=== PATIENT | female | born 1985 | race African-American/Black ===

== ENCOUNTER 2016-03-27 16:15 | Emergency (ER) | payer BC, OTHER ==
[~2016-03-27] VITALS: Ht 154.9 cm; Wt 79.4 kg
[~2016-03-27 16:15] MED LIST: RIVA10TA PO
[2016-03-27 17:15] VITALS: BP 122/76
[2016-03-27] MEDS ORDERED: PSEU120T58 PO (17:49)
[2016-03-27] MEDS ORDERED: AMOX875T PO (17:49)
[2016-03-27] MEDS ORDERED: BENZ100C PO (17:49)
--- NOTE | 2016-03-27 17:50 | PHYS DOC ---
Past Medical History Past Medical History: Other Additional Past Medical Histor: blood clots in lung Past Surgical History: , Tonsillectomy Alcohol Use: Rarely Drug Use: None Adult General Chief Complaint Chief Complaint: COUGH HPI HPI Patient is a 30 year old female who presents with left ear pain, productive cough and nasal congestion for one week. Patient denies any fever. Denies any significant previous medical history Review of Systems Review of Systems Constitutional: Denies fever or chills [] Eyes: Denies change in visual acuity, redness, or eye pain [] HENT: Left ear pain and productive cough nasal congestion Cardiovascular: No additional information not addressed in HPI [] GI: Denies abdominal pain, nausea, vomiting, bloody stools or diarrhea [] : Denies dysuria or hematuria [] Musculoskeletal: Denies back pain or joint pain [] Integument: Denies rash or skin lesions [] Neurologic: Denies headache, focal weakness or sensory changes [] Endocrine: Denies polyuria or polydipsia [] Allergies Allergies Allergies Coded Allergies Type Severity Reaction Last Updated Verified doxycycline Allergy Intermediate rash 02/28/14 No sumatriptan Allergy Intermediate swelling 02/28/14 No Physical Exam Physical Exam Constitutional: Well developed, well nourished, no acute distress, non-toxic appearance. [] HENT: Normocephalic, atraumatic, bilateral external ears normal, oropharynx moist, no oral exudates, nose normal. [] Bilateral TM are mildly injected with small amount of cloudy fluid Eyes: PERRLA, EOMI, conjunctiva normal, no discharge. [] Neck: Normal range of motion, no tenderness, supple, no stridor. [] Cardiovascular:Heart rate regular rhythm, no murmur [] Lungs & Thorax: Bilateral breath sounds clear to auscultation [] Abdomen: Bowel sounds normal, soft, no tenderness, no masses, no pulsatile masses. [] Skin: Warm, dry, no erythema, no rash. [] Back: No tenderness, no CVA tenderness. [] Extremities: No tenderness, no cyanosis, no clubbing, ROM intact, no edema. [] Neurologic: Alert and oriented X 3, normal motor function, normal sensory function, no focal deficits noted. [] Psychologic: Affect normal, judgement normal, mood normal. [] Current Patient Data Vital Signs Vital Signs Date Time Temp Pulse Resp B/P Pulse Ox O2 Delivery O2 Flow Rate FiO2 03/27/16 17:15 98.6 82 18 100 Room Air 98.6 EKG EKG [] Radiology/Procedures Radiology/Procedures [] Course & Med Decision Making Course & Med Decision Making Pertinent Labs and Imaging studies reviewed. (See chart for details) Patient is in the due to otitis media cough and nasal congestion. Discharged with amoxicillin for 10 days. Tylenol/ Motrin for pain or fever. Over-the- counter decongestants also recommended. Follow-up with PCP in one week. Dragon Disclaimer Dragon Disclaimer This electronic medical record was generated, in whole or in part, using a voice recognition dictation system. Departure Departure Impression: Primary Impression: Otitis media Additional Impressions: Cough Acute upper respiratory infection Disposition: HOME, SELF-CARE Condition: STABLE Referrals: GRACIELA BYRD MD (PCP) Follow-up with your doctor in one week Patient Instructions: Otitis Media, Adult Additional Instructions: You were seen for an upper respiratory infection, ear infection and a cough. Complete your antibiotics. Take Tylenol or Motrin as needed for pain or fever. Take omzh-mrt-[id number] decongestant as well. Scripts Pseudoephedrine Hcl (Pseudoephedrine)120 Mg Tablet.er1 Tab PO BID #20 TAB Prov:DEONDRE DOWLING APRN 03/27/16 Benzonatate (Tessalon Perle)100 Mg Capsule1 Cap PO TID #30 CAP Prov:DEONDRE DOWLING APRN 03/27/16 Amoxicillin 875 Mg Tablet1 Tab PO BID #20 TAB Prov:DEONDRE DOWLING APRN 03/27/16 Problem Qualifiers Primary Impression: Otitis media Otitis media type: other nonsuppurative Laterality: bilateral Chronicity: acute Recurrence: not specified as recurrent Qualified Code: H65.193 - Other acute nonsuppurative otitis media, bilateral DEONDRE DOWLING APRN Mar 27, 2016 17:50
== END 2016-03-27 18:05 | disposition home or self-care (01) ==
LOC: ER 16:15
DX: H65.193 Other acute nonsuppurative otitis media, bilateral (principal); J06.9 Acute upper respiratory infection, unspecified; Z88.8 Allergy status to other drugs, medicaments and biological substances; Z90.89 Acquired absence of other organs
CPT/HCPCS: 99283

== ENCOUNTER 2016-08-24 18:01 | Emergency (ER) | payer BC, OTHER ==
[~2016-08-24] VITALS: Ht 154.9 cm; Wt 78.5 kg
[~2016-08-24 18:01] MED LIST changes: +AMOX875T PO; +BENZ100C PO; +PSEU120T58 PO
[2016-08-24 18:07] VITALS: BP 119/66
[2016-08-24] MEDS ORDERED: KETOROLAC TROMETHAMINE 60 MG/2 ML INJ. IM ONE (18:15)
[2016-08-24] MEDS ORDERED: AMOX875T PO (18:19)
--- NOTE | 2016-08-24 18:20 | PHYS DOC ---
Past Medical History Past Medical History: Other Additional Past Medical Histor: blood clots in lung Past Surgical History: , Tonsillectomy Alcohol Use: Rarely Drug Use: None Adult General Chief Complaint Chief Complaint: HEADACHE HPI HPI Patient is a 30 year old female presents to the emergency department with a one -week history of right ear pain and a headache for 24 hours. Patient states that she took a dose of her furosemide this morning he did not have relief of her headache so she presents for further evaluation and headache and ear pain. She states she has no photophobia, no nausea, no vomiting. She reports no fever. She has had mild nasal congestion for one week. She describes this headache to be typical of her chronic migraines but concerning because it was not relieved by Fioricet. Review of Systems Review of Systems Constitutional: Denies fever or chills [] Eyes: Denies change in visual acuity, redness, or eye pain [] HENT: Denies nasal congestion or sore throat, complains of right ear pain and nasal congestion [] Respiratory: Denies cough or shortness of breath [] Cardiovascular: No additional information not addressed in HPI [] GI: Denies abdominal pain, nausea, vomiting, bloody stools or diarrhea [] : Denies dysuria or hematuria [] Musculoskeletal: Denies back pain or joint pain [] Integument: Denies rash or skin lesions [] Neurologic: headache without focal weakness or sensory changes [] Endocrine: Denies polyuria or polydipsia [] Allergies Allergies Allergies Coded Allergies Type Severity Reaction Last Updated Verified doxycycline Allergy Intermediate rash 02/28/14 No sumatriptan Allergy Intermediate swelling 02/28/14 No Physical Exam Physical Exam Constitutional: Well developed, well nourished, no acute distress, non-toxic appearance. [] HENT: Normocephalic, atraumatic, bilateral external ears normal, oropharynx moist, no oral exudates, right tympanic membrane with effusion, erythematous. Anterior turbinates swollen. [] Eyes: PERRLA, EOMI, conjunctiva normal, no discharge. [] Neck: Normal range of motion, no tenderness, supple, no stridor. [] Cardiovascular:Heart rate regular rhythm, no murmur [] Lungs & Thorax: Bilateral breath sounds clear to auscultation [] Abdomen: Bowel sounds normal, soft, no tenderness, no masses, no pulsatile masses. [] Skin: Warm, dry, no erythema, no rash. [] Back: No tenderness, no CVA tenderness. [] Extremities: No tenderness, no cyanosis, no clubbing, ROM intact, no edema. [] Neurologic: Alert and oriented X 3, normal motor function, normal sensory function, no focal deficits noted. [] Psychologic: Affect normal, judgement normal, mood normal. [] EKG EKG [] Radiology/Procedures Radiology/Procedures [] Course & Med Decision Making Course & Med Decision Making Pertinent Labs and Imaging studies reviewed. (See chart for details) [] Dragon Disclaimer Dragon Disclaimer This electronic medical record was generated, in whole or in part, using a voice recognition dictation system. Departure Departure Impression: Primary Impression: Otitis media Additional Impression: Headache Disposition: HOME, SELF-CARE Condition: STABLE Referrals: GRACIELA BYRD MD (PCP) Patient Instructions: Headache, FAQs, Otitis Media, Adult Additional Instructions: Integument home medications for headache as previously prescribed by your primary care provider. Scripts Amoxicillin (AMOXICILLIN) 875 Mg Tablet 1 TAB PO BID, #20 TAB Prov: JOLENE WARE APRN 08/24/16 Problem Qualifiers Primary Impression: Otitis media Otitis media type: serous Laterality: right Chronicity: acute Recurrence : not specified as recurrent Qualified Codes: H65.01 - Acute serous otitis media, right ear Additional Impression: Headache Headache type: unspecified Headache chronicity pattern: chronic headache Intractability: not intractable Qualified Codes: R51 - Headache JOLENE WARE APRN Aug 24, 2016 18:19
== END 2016-08-24 18:23 | disposition home or self-care (01) ==
LOC: ER 18:01
DX: H65.01 Acute serous otitis media, right ear (principal); R51 Headache; Z88.1 Allergy status to other antibiotic agents; Z88.8 Allergy status to other drugs, medicaments and biological substances
CPT/HCPCS: 96372; 99283; J1885

== ENCOUNTER 2017-01-23 18:47 | Emergency (ER) | payer OTHER ==
[~2017-01-23] VITALS: Ht 154.9 cm; Wt 78.5 kg
[2017-01-23 19:05] VITALS: BP 122/62
--- NOTE | 2017-01-23 19:49 | PHYS DOC ---
Past Medical History Past Medical History: Bronchitis, Migraines, Pneumonia, Other Additional Past Medical Histor: blood clots in lung Past Surgical History: , Tonsillectomy Alcohol Use: Rarely Drug Use: None Adult General Chief Complaint Chief Complaint: COUGH HPI HPI Patient is a 31 year old female with history of bronchitis, migraine headaches , who presents today complaining of a productive cough for 2 weeks. Patient states she has tried amoxicillin and azithromycin last week with no relief. Patient denies any fever. Denies any history of smoking. Review of Systems Review of Systems Constitutional: Denies fever or chills [] Eyes: Denies change in visual acuity, redness, or eye pain [] HENT: Denies nasal congestion or sore throat [] Respiratory: Reports a productive cough, denies any shortness of breath Cardiovascular: No additional information not addressed in HPI [] GI: Denies abdominal pain, nausea, vomiting, bloody stools or diarrhea [] : Denies dysuria or hematuria [] Musculoskeletal: Denies back pain or joint pain [] Integument: Denies rash or skin lesions [] Neurologic: Denies headache, focal weakness or sensory changes [] All other systems were reviewed and found to be within normal limits, except as documented in this note. Allergies Allergies Allergies Coded Allergies Type Severity Reaction Last Updated Verified doxycycline Allergy Intermediate rash 02/28/14 No sumatriptan Allergy Intermediate swelling 02/28/14 No Physical Exam Physical Exam Constitutional: Well developed, well nourished, no acute distress, non-toxic appearance. [] HENT: Normocephalic, atraumatic, bilateral external ears normal, oropharynx moist, no oral exudates, nose normal. [] Eyes: PERRLA, EOMI, conjunctiva normal, no discharge. [] Neck: Normal range of motion, no tenderness, supple, no stridor. [] Cardiovascular:Heart rate regular rhythm, no murmur [] Lungs & Thorax: Bilateral breath sounds clear to auscultation [] Abdomen: Bowel sounds normal, soft, no tenderness, no masses, no pulsatile masses. [] Skin: Warm, dry, no erythema, no rash. [] Back: No tenderness, no CVA tenderness. [] Extremities: No tenderness, no cyanosis, no clubbing, ROM intact, no edema. [] Neurologic: Alert and oriented X 3, normal motor function, normal sensory function, no focal deficits noted. [] Psychologic: Affect normal, judgement normal, mood normal. [] Current Patient Data Vital Signs Vital Signs Date Time Temp Pulse Resp B/P (MAP) Pulse Ox O2 Delivery O2 Flow Rate FiO2 01/23/17 19:05 98.1 82 20 122/62 (82) 98 Room Air 98.1 EKG EKG [] Radiology/Procedures Radiology/Procedures [] Course & Med Decision Making Course & Med Decision Making Pertinent Labs and Imaging studies reviewed. (See chart for details) Patient is in the ED with a productive cough for 2 weeks. She has already taken amoxicillin and azithromycin with no relief. Chest x-ray interpreted by Dr. Almazan is negative for any acute findings. Patient's symptoms are likely bronchitis. Be discharged with prednisone, albuterol inhaler and Tessalon Perles. OTC medications also recommended. She has a PCP, recommended following up in one week. Dragon Disclaimer Dragon Disclaimer This electronic medical record was generated, in whole or in part, using a voice recognition dictation system. Departure Departure Impression: Primary Impression: Acute bronchitis Disposition: 01 HOME, SELF-CARE Condition: STABLE Referrals: GRACIELA BYRD MD (PCP) follow up with your doctor in one week Patient Instructions: Acute Bronchitis, [id number] Additional Instructions: You were seen with acute bronchitis. Bronchitis cough can sometimes last for a while. We put you on medications to help with the symptoms. Take them as prescribed. We highly encouraged you to follow-up with your primary care doctor in the next 1-2 weeks. You can also take hgmg-mow-ycaolow medications including Delsym as well as Zyrtec or Claritin. Scripts Prednisone (PREDNISONE) 50 Mg Tablet 1 TAB PO DAILY, #5 TAB Prov: DEONDRE DOWLING APRN 01/23/17 Benzonatate (TESSALON PERLE) 100 Mg Capsule 1 CAP PO TID, #30 CAP Prov: DEONDRE DOWLING TRAVEL PTA 01/23/17 Albuterol Sulfate (PROAIR HFA INHALER) 8.5 Gm Hfa.aer.ad 1 PUFF INH PRN Q6HRS Y for SHORTNESS OF BREATH, #1 INHALER 0 Refills Prov: DEONRDE DOWLING APRN 01/23/17 Problem Qualifiers Primary Impression: Acute bronchitis Bronchitis organism: unspecified organism Qualified Codes: J20.9 - Acute bronchitis, unspecified MUTUNGADEONDRE APRN Jan 23, 2017 19:49
[2017-01-23] MEDS ORDERED: PRED50TA PO (20:07)
[2017-01-23] MEDS ORDERED: BENZ100C PO (20:07)
[2017-01-23] MEDS ORDERED: PROAIR HFA8.5 GM INH (20:07)
--- NOTE | 2017-01-24 08:18 | RAD ---
Chest, 2 views, 01/23/2017: History: Productive cough, chills, hot flashes The heart size is normal. The lungs are clear. There is no evidence of pleural fluid. IMPRESSION: No acute cardiopulmonary abnormality is detected.
== END 2017-01-23 20:20 | disposition home or self-care (01) ==
LOC: ER 18:47
DX: J20.9 Acute bronchitis, unspecified (principal); G43.909 Migraine, unspecified, not intractable, without status migrainosus; Z88.8 Allergy status to other drugs, medicaments and biological substances
CPT/HCPCS: 71020; 99284

== ENCOUNTER 2017-04-02 13:59 | Emergency (ER) | payer OTHER ==
[2017-04-02 14:54] LABS: URINE HCG POC HCG NEGATIVE (Negative)
[2017-04-02 15:36] LABS: BILIRUBIN,URINE NEGATIVE (NEG); CLARITY,URINE CLEAR; COLOR,URINE YELLOW; GLUCOSE,URINE NEGATIVE (NEG); NITRITE,URINE NEGATIVE (NEG); PH,URINE 5.5; PROTEIN,URINE NEGATIVE (NEG-TRACE); UROBILINOGEN,URINE 0.2 mg/dL (0.2 mg/dL)
[2017-04-02 15:54] LABS: BACTERIA,URINE 0 /HPF (0-FEW); RBC,URINE 0 /HPF (0-2); SQUAMOUS EPITHELIAL CELL,UR MOD /LPF; WBC,URINE 0 /HPF (0-4)
[2017-04-02 15:57] LABS: INFLUENZA A PATIENT NEGATIVE (NEGATIVE); INFLUENZA B PATIENT NEGATIVE (NEGATIVE)
[2017-04-02 15:58] LABS: OBC FLU VALID
[2017-04-02] MEDS: ONDANSETRON PF 4 MG/2 ML VIAL. IV ×2 (16:22)
[2017-04-02] MEDS: IV NORMAL SALINE 1000ML BAG 1,000 ML IV ×2 (16:22)
[2017-04-02] MEDS: KETOROLAC 30 MG/ML INJ. IV ×2 (16:22)
[2017-04-02 16:26] LABS: ADD MAN DIFF? NO
[2017-04-02 16:32] LABS: BASO % 1 % (0-3); EOS % 1 % (0-3); HEMATOCRIT 40.2 % (36.0-47.0); HEMOGLOBIN 13.7 g/dL (12.0-15.5); LYMPH # 0.6 x10^3/uL (1.0-4.8); LYMPH % 18 % (24-48); MEAN CORPUSCULAR HEMOGLOBIN 32 pg (25-35); MEAN CORPUSCULAR HGB CONC 34 g/dL (31-37); MEAN CORPUSCULAR VOLUME 92 fL (79-100); MONO # 0.4 x10^3/uL (0.0-1.1); MONO % 11 % (0-9); NEUT # 2.4 x10^3uL (1.8-7.7); NEUT % 70 % (31-73); PLATELET COUNT 239 x10^3/uL (140-400); RED BLOOD COUNT 4.35 x10^6/uL (3.50-5.40); RED CELL DISTRIBUTION WIDTH 12.3 % (11.5-14.5); WHITE BLOOD COUNT 3.4 x10^3/uL (4.0-11.0)
[2017-04-02 16:52] LABS: ANION GAP 12 (6-14); BLOOD UREA NITROGEN 12 mg/dL (7-20); BUN/CREATININE RATIO 17 (6-20); CARBON DIOXIDE 28 mmol/L (21-32); CHLORIDE 97 mmol/L (98-107); CREATININE 0.7 mg/dL (0.6-1.0); GFR 118.1; GLUCOSE 85 mg/dL (70-99); POTASSIUM 3.2 mmol/L (3.5-5.1); SODIUM 137 mmol/L (136-145)
[2017-04-02 16:58] LABS: ALBUMIN 4.2 g/dL (3.4-5.0); ALBUMIN/GLOBULIN RATIO 0.9 (1.0-1.7); ALK PHOS 92 U/L (46-116); ALT (SGPT) 29 U/L (14-59); AST (SGOT) 17 U/L (15-37); LIPASE 197 U/L (73-393); TOTAL BILIRUBIN 0.6 mg/dL (0.2-1.0); TOTAL PROTEIN 8.9 g/dL (6.4-8.2)
[2017-04-02] MEDS: POTASSIUM CHLORIDE 20 MEQ TABLET.ER. PO ×2 (17:20)
== END 2017-04-02 17:47 | disposition home or self-care (01) ==
LOC: ER 13:59
DX: R10.84 Generalized abdominal pain (principal); Z88.1 Allergy status to other antibiotic agents; Z88.8 Allergy status to other drugs, medicaments and biological substances
CPT/HCPCS: 36415; 80053; 81001; 81025; 83690; 85025; 87804; 87804-59; 96361; 96374; 96375; 99284-25; J1885; J2405; J7030

== ENCOUNTER 2018-09-25 13:30 | Emergency (ER) | payer OTHER ==
[2017-04-02 17:15] VITALS: BP 115/69
[~2018-09-25] VITALS: Ht 154.9 cm; Wt 79.4 kg
[~2018-09-25 13:30] MED LIST changes: +ALBU2.5V8 INH; +ONDA4TAB10 SL; +PRED50TA PO
--- NOTE | 2018-09-25 14:06 | PHYS DOC ---
Past Medical History Past Medical History: Bronchitis, Migraines, Pneumonia, Other Additional Past Medical Histor: blood clots in lung Past Surgical History: , Tonsillectomy Alcohol Use: Rarely Drug Use: None Adult General Chief Complaint Chief Complaint: HEADACHE HPI HPI Patient is a 32 year old female who presents to the ED today complaining of 8 out of 10 right ear pain, nasal congestion or sinus headache that began a week ago. Patient denies any fever. She states she's tried [id number]-[id number] remedies including decongestants with no relief. She is also reporting a cough when she is laying down Review of Systems Review of Systems Constitutional: Denies fever or chills [] Eyes: Denies change in visual acuity, redness, or eye pain [] HENT: Reports nasal congestion, right ear pain, denies sore throat [] Respiratory: Denies cough or shortness of breath [] Cardiovascular: No additional information not addressed in HPI [] GI: Denies abdominal pain, nausea, vomiting, bloody stools or diarrhea [] : Denies dysuria or hematuria [] Musculoskeletal: Denies back pain or joint pain [] Integument: Denies rash or skin lesions [] Neurologic: Pupils a sinus headache, denies focal weakness or sensory changes [] All other systems were reviewed and found to be within normal limits, except as documented in this note. Allergies Allergies Allergies Coded Allergies Type Severity Reaction Last Updated Verified doxycycline Allergy Intermediate rash 02/28/14 No sumatriptan Allergy Intermediate swelling 02/28/14 No Physical Exam Physical Exam Constitutional: Well developed, well nourished, no acute distress, non-toxic appearance. [] HENT: Normocephalic, atraumatic, bilateral external ears normal, oropharynx moist, no oral exudates Patient sounds congested nasally. Mild right maxillary sinus tenderness. Mild right frontal sinus tenderness. Right TM is mildly injected with cloudy fluid. Eyes: PERRLA, EOMI, conjunctiva normal, no discharge. [] Neck: Normal range of motion, no tenderness, supple, no stridor. [] Cardiovascular:Heart rate regular rhythm, no murmur [] Lungs & Thorax: Bilateral breath sounds clear to auscultation [] Abdomen: Bowel sounds normal, soft, no tenderness, no masses, no pulsatile masses. [] Skin: Warm, dry, no erythema, no rash. [] Back: No tenderness, no CVA tenderness. [] Extremities: No tenderness, no cyanosis, no clubbing, ROM intact, no edema. [] Neurologic: Alert and oriented X 3, normal motor function, normal sensory function, no focal deficits noted. [] Psychologic: Affect normal, judgement normal, mood normal. [] Current Patient Data Vital Signs Vital Signs Date Time Temp Pulse Resp B/P (MAP) Pulse Ox O2 Delivery O2 Flow Rate FiO2 09/25/18 13:40 98.6 58 16 112/70 (84) 95 Room Air 98.6 EKG EKG [] Radiology/Procedures Radiology/Procedures [] Course & Med Decision Making Course & Med Decision Making Pertinent Labs and Imaging studies reviewed. (See chart for details) This is a 32-year-old female patient who presents to the ED today with right ear infection, sinusitis and a cough. D/c on Augmentin, Flonase and OTC decongestants. Dragon Disclaimer Dragon Disclaimer This electronic medical record was generated, in whole or in part, using a voice recognition dictation system. Departure Departure Impression: Primary Impression: Cough Additional Impressions: Acute sinusitis Otitis media Disposition: HOME, SELF-CARE Condition: STABLE Referrals: KIMI ANDERSON MD (PCP) follow up with your doctor in 1-2 weeks Patient Instructions: Cough, Adult, Agul-hw-Dapp, Otitis Media, Adult, Si nusitis Additional Instructions: You were evaluated for ear infection and sinus infection, please complete your antibiotics. Follow-up with your doctor in the next, continue taking tnsd-zrf-tdkfhhv pain relievers as well as decongestants. Scripts Fluticasone Propionate (Flonase Allergy Relief) 9.9 Ml Dupree.susp 2 SPRAYS NS DAILY, #1 BOTTLE Prov: MUTUNGA,DEONDRE MANAGING PARTNER 09/25/18 Amoxicillin/Potassium Clav (AUGMENTIN 875-125 TABLET) 1 Each Tablet 1 TAB PO BID, #20 TAB Prov: MUTUNGA,DEONDRE MANAGING PARTNER 09/25/18 Problem Qualifiers Additional Impressions: Acute sinusitis Sinusitis location: maxillary Recurrence: non-recurrent Qualified Codes: J01.00 - Acute maxillary sinusitis, unspecified Otitis media Otitis media type: other nonsuppurative Chronicity: acute Laterality: right Recurrence: non-recurrent Qualified Codes: H65.191 - Other acute nonsuppurative otitis media, right ear LEILANIRAFAELADEONDRE Isaacs MANAGING PARTNER Sep 25, 2018 14:06
[2018-09-25] MEDS ORDERED: AMOX1TAB61 PO (14:13)
[2018-09-25] MEDS ORDERED: FLUT9.9S NS (14:13)
== END 2018-09-25 14:24 | disposition home or self-care (01) ==
LOC: ER 13:30
DX: J01.00 Acute maxillary sinusitis, unspecified (principal); H65.191 Other acute nonsuppurative otitis media, right ear; R05 Cough; R09.81 Nasal congestion; G43.909 Migraine, unspecified, not intractable, without status migrainosus; Z90.89 Acquired absence of other organs; Z88.8 Allergy status to other drugs, medicaments and biological substances
CPT/HCPCS: 99283

== ENCOUNTER 2019-04-21 16:49 | Emergency (ER) | payer OTHER ==
[~2019-04-21] VITALS: Ht 154.9 cm; Wt 78.6 kg
[~2019-04-21 16:49] MED LIST changes: +AMOX1TAB61 PO; +FLUT9.9S NS
[2019-04-21 17:19] VITALS: BP 113/56
[2019-04-21] MEDS ORDERED: POLY10DR3 EACHEYE (17:28)
[2019-04-21] MEDS ORDERED: METH4TAB2 PO (17:28)
--- NOTE | 2019-04-21 17:28 | PHYS DOC ---
Past Medical History Past Medical History: Bronchitis, Migraines, Pneumonia, Other Additional Past Medical Histor: blood clots in lung Past Surgical History: , Tonsillectomy Smoking Status: Never Smoker Alcohol Use: Rarely Drug Use: None Adult General Chief Complaint Chief Complaint: EYE PROBLEMS HPI HPI Patient is a 33 year old female who presents with recently traveled to [place]. She states that she got her eyelashes done after her eyelashes were done she noticed that her eyes became itchy and watery and began to be compressed over his machine when she woke up in the morning. She states the drainage is a yellow color. She states from itching and burning that the light does bother her eyes at times. She denies any other symptoms. She rates her discomfort at 8 out of 10. Review of Systems Review of Systems Eyes: Denies change in visual acuity. conjunctiva redness, itching, watering, drainage, or eye pain [] All other systems were reviewed and found to be within normal limits, except as documented in this note. Allergies Allergies Allergies Coded Allergies Type Severity Reaction Last Updated Verified doxycycline Allergy Intermediate rash 02/28/14 No sumatriptan Allergy Intermediate swelling 02/28/14 No Physical Exam Physical Exam Constitutional: Well developed, well nourished, no acute distress, non-toxic appearance. [] HENT: Normocephalic, atraumatic, bilateral external ears normal, oropharynx moist, no oral exudates, nose normal. [] Eyes: PERRLA, EOMI, conjunctiva red, watery yellow discharge. [] Neck: Normal range of motion, no tenderness, supple, no stridor. [] Cardiovascular:Heart rate regular rhythm, no murmur [] Lungs & Thorax: Bilateral breath sounds clear to auscultation [] Abdomen: Bowel sounds normal, soft, no tenderness, no masses, no pulsatile masses. [] Skin: Warm, dry, no erythema, no rash. [] Back: No tenderness, no CVA tenderness. [] Extremities: No tenderness, no cyanosis, no clubbing, ROM intact, no edema. [] Neurologic: Alert and oriented X 3, normal motor function, normal sensory function, no focal deficits noted. [] Psychologic: Affect normal, judgement normal, mood normal. [] EKG EKG [] Radiology/Procedures Radiology/Procedures [] Course & Med Decision Making Course & Med Decision Making Pertinent Labs and Imaging studies reviewed. (See chart for details) Patient denies any injury to her eye or getting anything in her eye. Bilateral conjunctivae is reddened. Patient has watery yellow discharge coming from her eyes. PERRLA. 1+ swelling to the eyelids around the eye. No cellulitis. Patient states she is also around children as she could've caught something from them too. No foreign body seen. No extraocular eye motion pain. It at times her vision will get blurry but her eyes are watering continuously also. Patient denies headache, dizziness, fever, nasal congestion, cough, ear pain, chest pain, shortness of air, abdominal pain, nausea, vomiting, diarrhea, numbness or tingling. [] Dragon Disclaimer Dragon Disclaimer This electronic medical record was generated, in whole or in part, using a voice recognition dictation system. Departure Departure Impression: Primary Impression: Conjunctivitis Disposition: HOME, SELF-CARE Condition: STABLE Referrals: CONNER GALLOWAY MD (PCP) Patient Instructions: Conjunctivitis (Viral and Bacterial) Additional Instructions: Follow up with primary care provider. Use medication as prescribed. Scripts Polymyxin B Sulf/Trimethoprim (POLYMYXIN B-TMP EYE DROPS) 10 Ml Drops 1 DROP EACHEYE QID for 7 Days, #10 ML 0 Refills Prov: ROCHELLE ALCANTARA APRN 04/21/19 Methylprednisolone (MEDROL) 4 Mg Tab.ds.pk 1 PKG PO UD, #1 PKG Prov: ROCHELLE ALCANTARA APRN 04/21/19 Problem Qualifiers Primary Impression: Conjunctivitis Conjunctivitis type: acute Acute conjunctivitis type: bacterial Laterality: bilateral Qualified Codes: H10.33 - Unspecified acute conjunctivitis, bilateral ROCHELLE ALCANTARA PARKING ASSISTANT Apr 21, 2019 17:28
== END 2019-04-21 17:33 | disposition home or self-care (01) ==
LOC: ER 16:49
DX: H10.33 Unspecified acute conjunctivitis, bilateral (principal); G43.909 Migraine, unspecified, not intractable, without status migrainosus; Z88.1 Allergy status to other antibiotic agents; Z88.8 Allergy status to other drugs, medicaments and biological substances
CPT/HCPCS: 99283

== ENCOUNTER 2019-11-13 12:29 | Emergency (ER) | payer OTHER ==
[~2019-11-13] VITALS: Ht 154.9 cm; Wt 79.0 kg
[~2019-11-13 12:29] MED LIST changes: +METH4TAB2 PO; +POLY10DR3 EACHEYE
[2019-11-13 12:56] VITALS: BP 142/70
[2019-11-13] MEDS ORDERED: predniSONE 10 MG TABLET PO ONE (13:15)
[2019-11-13] MEDS ORDERED: KETOROLAC 60 MG/2 ML VIAL. IM ONE (13:15)
[2019-11-13] MEDS ORDERED: PROCHLORPERAZINE 10 MG/2 ML VIAL. IM ONE (13:15)
[2019-11-13] MEDS ORDERED: diphenhydrAMINE HCL 25 MG CAPSULE PO ONE (13:15)
[2019-11-13] MEDS ORDERED: PROM12.58 PO (13:28)
--- NOTE | 2019-11-13 13:28 | PHYS DOC ---
Past Medical History Past Medical History: Bronchitis, Migraines, Pneumonia, Other Additional Past Medical Histor: blood clots in lung Past Surgical History: , Tonsillectomy Smoking Status: Never Smoker Alcohol Use: Rarely Drug Use: None General Adult EDM: Chief Complaint: HEADACHE HPI: HPI: Patient is a 33 year old female with history of migraine headaches who presents to the ED today complaining of 7 out of 10 frontal migraine headache with nausea and vomiting that began this morning around 3 AM. Patient states this migraine is consistent with her normal migraines. Denies this being the worst headache in her life. She states she tried taking her migraine medicine as well as her nausea medicine with no relief. Review of Systems: Review of Systems: Constitutional: Denies fever or chills. [] Eyes: Denies change in visual acuity. [] HENT: Denies nasal congestion or sore throat. [] Respiratory: Denies cough or shortness of breath. [] Cardiovascular: Denies chest pain or edema. [] GI: Denies abdominal pain, nausea, vomiting, bloody stools or diarrhea. [] : Denies dysuria. [] Musculoskeletal: Denies back pain or joint pain. [] Integument: Denies rash. [] Neurologic: Reports migraine headache, denies focal weakness or sensory changes. [] Psychiatric: Denies depression or anxiety. [] Heart Score: Risk Factors: Risk Factors: DM, Current or recent (<one month) smoker, HTN, HLP, family history of CAD, obesity. Risk Scores: Score 0 - 3: 2.5% MACE over next 6 weeks - Discharge Home Score 4 - 6: 20.3% MACE over next 6 weeks - Admit for Clinical Observation Score 7 - 10: 72.7% MACE over next 6 weeks - Early Invasive Strategies Current Medications: Current Medications Medications (Trade) Dose Ordered Sig/Marge Start Time Stop Time Status Last Admin Dose Admin Diphenhydramine HCl (Benadryl) 25 mg 1X ONCE 11/13/19 13:15 11/13/19 13:16 DC 11/13/19 13:21 25 MG Ketorolac Tromethamine (Toradol Im) 60 mg 1X ONCE 11/13/19 13:15 11/13/19 13:16 DC 11/13/19 13:21 60 MG Prednisone (Prednisone) 50 mg 1X ONCE 11/13/19 13:15 11/13/19 13:16 DC 11/13/19 13:21 50 MG Prochlorperazine Edisylate (Compazine) 10 mg 1X ONCE 11/13/19 13:15 11/13/19 13:16 DC 11/13/19 13:21 10 MG Allergies: Allergies: Allergies Coded Allergies Type Severity Reaction Last Updated Verified doxycycline Allergy Intermediate rash 02/28/14 No sumatriptan Allergy Intermediate swelling 02/28/14 No Physical Exam: PE: Constitutional: Well developed, well nourished, no acute distress, non-toxic appearance. [] HENT: Normocephalic, atraumatic, bilateral external ears normal, oropharynx moist, no oral exudates, nose normal. [] Eyes: PERRLA, EOMI, conjunctiva normal, no discharge. [] Neck: Normal range of motion, no tenderness, supple, no stridor. [] Cardiovascular:Heart rate regular rhythm, no murmur [] Lungs & Thorax: Bilateral breath sounds clear to auscultation [] Abdomen: Bowel sounds normal, soft, no tenderness, no masses, no pulsatile m asses. [] Skin: Warm, dry, no erythema, no rash. [] Back: No tenderness, no CVA tenderness. [] Extremities: No tenderness, no cyanosis, no clubbing, ROM intact, no edema. [] Neurologic: Alert and oriented X 3, normal motor function, normal sensory function, no focal deficits noted. Cranial nerves II through XII intact Psychologic: Affect normal, judgement normal, mood normal. [] Current Patient Data: Vital Signs: Vital Signs Date Time Temp Pulse Resp B/P (MAP) Pulse Ox O2 Delivery O2 Flow Rate FiO2 11/13/19 12:56 98.2 98 16 142/70 (94) 98 Room Air 98.2 EKG: EKG: [] Radiology/Procedures: Radiology/Procedures: [] Course & Med Decision Making: Course & Med Decision Making Pertinent Labs and Imaging studies reviewed. (See chart for details) This is a 33-year-old female patient presenting to the ED today with exacerbation of chronic migraine headache. Patient was given migraine cocktail in the ED with relief. Discharge to home. Follow-up with her own doctor in 1 to 2 weeks. Young Disclaimer: Young Disclaimer: This electronic medical record was generated, in whole or in part, using a voice recognition dictation system. Departure Departure Impression: Primary Impression: Migraine headache Qualified Codes: G43.909 - Migraine, unspecified, not intractable, without status migrainosus Disposition: 01 HOME, SELF-CARE Condition: STABLE Referrals: CONNER GALLOWAY MD (PCP) follow up in one week Patient Instructions: Migraine Headache Additional Instructions: You were evaluated in the emergency room for migraine headache. Continue taking your migraine headache medication at home as needed and ordered by your doctor. Come back to the ED at any point symptoms worsen. Scripts Promethazine Hcl (PROMETHAZINE HCL) 12.5 Mg Tablet 1 TAB PO Q6-8HRS for motion sickness for 5 Days, #20 TAB 0 Refills Prov: DEONDRE DOWLING APRN 11/13/19 Justicifation of Admission Dx: Justifications for Admission: Justification of Admission Dx: N/A DEONDRE DOWLING APRN Nov 13, 2019 13:28
== END 2019-11-13 14:17 | disposition home or self-care (01) ==
LOC: ER 12:29
DX: G43.909 Migraine, unspecified, not intractable, without status migrainosus (principal); Z88.1 Allergy status to other antibiotic agents; Z88.8 Allergy status to other drugs, medicaments and biological substances
CPT/HCPCS: 96372; 99284; J0780; J1885; J7512; Q0163

== ENCOUNTER 2019-12-01 23:40 | Emergency (ER) | payer OTHER ==
[~2019-12-01] VITALS: Ht 154.9 cm; Wt 83.0 kg
[~2019-12-01 23:40] MED LIST changes: +PROM12.58 PO
[2019-12-02 00:20] VITALS: BP 94/80
--- NOTE | 2019-12-02 00:29 | PHYS DOC ---
Past Medical History Past Medical History: Bronchitis, Migraines, Pneumonia, Other Additional Past Medical Histor: blood clots in lung Past Surgical History: , Tonsillectomy Smoking Status: Never Smoker Alcohol Use: Rarely Drug Use: None General Adult EDM: Chief Complaint: MECHANICAL FALL HPI: HPI: Patient is a 33 year old female who presented to ER today for evaluation of back pain, headache after she fell about 3 steps at her house. Patient says she was walking upstairs, she somehow lost her balance and fell backward, hit the back of her head on the carpet floor, no loss of consciousness. Patient is complaining of headache, low back pain. Patient denies any chest pain, no trouble breathing. Patient denies any pelvic pain, no hip pain, no extremity pain. Patient denies any weakness or numbness in her extremities. Review of Systems: Review of Systems: Constitutional: Denies fever or chills. [] Eyes: Denies change in visual acuity. [] HENT: Denies nasal congestion or sore throat. [] Respiratory: Denies cough or shortness of breath. [] Cardiovascular: Denies chest pain or edema. [] GI: Denies abdominal pain, nausea, vomiting, bloody stools or diarrhea. [] : Denies dysuria. [] Musculoskeletal: POSITIVE FOR LOWER BACK PAIN Integument: Denies rash. [] Neurologic: POSITIVE FOR HEADACHE, Denies focal weakness or sensory changes. [] Endocrine: Denies polyuria or polydipsia. [] Lymphatic: Denies swollen glands. [] Psychiatric: Denies depression or anxiety. [] Heart Score: Risk Factors: Risk Factors: DM, Current or recent (<one month) smoker, HTN, HLP, family history of CAD, obesity. Risk Scores: Score 0 - 3: 2.5% MACE over next 6 weeks - Discharge Home Score 4 - 6: 20.3% MACE over next 6 weeks - Admit for Clinical Observation Score 7 - 10: 72.7% MACE over next 6 weeks - Early Invasive Strategies Allergies: Allergies: Allergies Coded Allergies Type Severity Reaction Last Updated Verified doxycycline Allergy Intermediate rash 02/28/14 No sumatriptan Allergy Intermediate swelling 02/28/14 No Physical Exam: PE: Constitutional: Well developed, well nourished, no acute distress, non-toxic appearance. [] HENT: Normocephalic, atraumatic, bilateral external ears normal, oropharynx moist, no oral exudates, nose normal. [] Eyes: PERRLA, EOMI, conjunctiva normal, no discharge. [] Neck: Normal range of motion, no tenderness, supple, no stridor. [] Cardiovascular:Heart rate regular rhythm, no murmur [] Lungs & Thorax: Bilateral breath sounds clear to auscultation [] Abdomen: Bowel sounds normal, soft, no tenderness, no masses, no pulsatile masses. [] Skin: Warm, dry, no erythema, no rash. [] Back: No tenderness, no CVA tenderness. [] Extremities: No tenderness, no cyanosis, no clubbing, ROM intact, no edema. [] Neurologic: Alert and oriented X 3, normal motor function, normal sensory function, no focal deficits noted. [] Psychologic: Affect normal, judgement normal, mood normal. [] Current Patient Data: Vital Signs: Vital Signs Date Time Temp Pulse Resp B/P (MAP) Pulse Ox O2 Delivery O2 Flow Rate FiO2 12/02/19 00:02 97.8 79 16 112/68 (83) 100 Room Air 97.8 EKG: EKG: [] Radiology/Procedures: Radiology/Procedures: [][facility] [address] [place], [place] [id number] IMAGING REPORT Signed PATIENT: MAUREEN LANGCOUNT: [id number] : 1985 LOCATION: ER AGE: 33 SEX: F EXAM STATUS: REG ER ORD. PHYSICIAN: ALESSANDRA PERRY DO REASON: fell, head and neck pain PROCEDURE: CT HEAD AND CERVICAL SPINE WO EXAM: CT head and cervical spine without contrast INDICATION: Fell, hit head, pain in neck COMPARISON: None TECHNIQUE: Axial CT imaging through the head without intravenous contrast. Sagittal and coronal reformats were obtained. Coronal and sagittal reformats of the cervical spine were obtained One or more of the following individualized dose reduction techniques were utilized for this examination: 1. Automated exposure control 2. Adjustment of the mA and/or kV according to patient size 3. Use of iterative reconstruction technique. FINDINGS: CT head: The ventricles and sulci are normal. Sifuentes-white matter differentiation is maintained. There is no intracranial hemorrhage, acute infarct, or mass lesion. Basal cisterns are clear. The skull and scalp are intact. Paranasal sinuses and mastoid air cells are clear. Globes and orbits are intact.. CT cervical spine: No acute fracture. Alignment is normal. The craniocervical junction and atlantoaxial interval are maintained. Disc spaces and facet joints are normal. Prevertebral soft tissue is normal. IMPRESSION: Normal CT head and cervical spine. Electronically signed by: Bouchra Mercer MD (12/02/2019 2:02 AM) [id number] DICTATED and SIGNED BY: BOUCHRA MERCER MD DATE: 12/02/19 0202 Course & Med Decision Making: Course & Med Decision Making Pertinent Labs and Imaging studies reviewed. (See chart for details) Patient is a 33-year-old female who was evaluated in the ER due to headache and low back pain after she fell AT HOME. CT scan of her head and C-spine was normal, x-ray chest and her lumbar spine was normal as well. Patient will be discharged home, take ibuprofen or Tylenol as needed for pain control. Patient is amenable to plan of care. Dragon Disclaimer: Dragon Disclaimer: This electronic medical record was generated, in whole or in part, using a voice recognition dictation system. Departure Departure Impression: Primary Impression: Head injury Additional Impression: Back pain Disposition: 01 DC HOME SELF CARE/HOMELESS Condition: STABLE Referrals: CONNER GALLOWAY MD (PCP) follow up with your doctor as needed Patient Instructions: Back Pain, Adult, Head Injury, Adult Additional Instructions: Thank you for visiting our Emergency Department. We appreciate you trusting us with your care. If any additional problems come up don't hesitate to return to visit us. Please follow up with your primary care provider so they can plan additional care if needed and know about the problem that you had. If symptoms worsen come back to the Emergency Department. Any concerning symptoms that start such as chest pain, shortness of air, weakness or numbness on one side of the body, running high fevers or any other concerning symptoms return to the ER. ALESSANDRA PERRY DO Dec 02, 2019 00:29
[2019-12-02] MEDS ORDERED: HYDROcodone/APAP 5/325MG 1 TAB TABLET PO ONE (02:00)
--- NOTE | 2019-12-02 02:05 | RAD ---
EXAM: CT head and cervical spine without contrast INDICATION: Fell, hit head, pain in neck COMPARISON: None TECHNIQUE: Axial CT imaging through the head without intravenous contrast. Sagittal and coronal reformats were obtained. Coronal and sagittal reformats of the cervical spine were obtained One or more of the following individualized dose reduction techniques were utilized for this examination: 1. Automated exposure control 2. Adjustment of the mA and/or kV according to patient size 3. Use of iterative reconstruction technique. FINDINGS: CT head: The ventricles and sulci are normal. Sifuentes-white matter differentiation is maintained. There is no intracranial hemorrhage, acute infarct, or mass lesion. Basal cisterns are clear. The skull and scalp are intact. Paranasal sinuses and mastoid air cells are clear. Globes and orbits are intact.. CT cervical spine: No acute fracture. Alignment is normal. The craniocervical junction and atlantoaxial interval are maintained. Disc spaces and facet joints are normal. Prevertebral soft tissue is normal. IMPRESSION: Normal CT head and cervical spine. Electronically signed by: Bouchra Mercer MD (12/02/2019 2:02 AM) [id number]
--- NOTE | 2019-12-02 03:19 | RAD ---
EXAM: CHEST AP ONLY, LUMBAR SPINE 2-3V 12/02/2019 12:12 AM CLINICAL INDICATION: Fell, chest pain COMPARISON: Chest radiograph 01/23/2017 TECHNIQUE: AP upright view the chest, AP, lateral, and coned-down lateral views of the lumbar spine FINDINGS: CHEST: The heart and mediastinum are normal. Lungs are well-expanded and clear. No consolidation, pleural effusion, or pneumothorax. Pulmonary vascularity is normal. The thoracic skeleton is intact. LUMBAR SPINE: There are 5 nonrib-bearing lumbar vertebral bodies. No acute fracture. Alignment is normal. Disc spaces are maintained. Facet joints are normal. IMPRESSION: Normal chest and lumbar spine radiographs Electronically signed by: Bouchra Mercer MD (12/02/2019 3:16 AM) [id number]
== END 2019-12-02 02:52 | disposition home or self-care (01) ==
LOC: ER 23:40
DX: S09.90XA Unspecified injury of head, initial encounter (principal); M54.5 Low back pain; G43.909 Migraine, unspecified, not intractable, without status migrainosus; M54.2 Cervicalgia; R07.89 Other chest pain; Z88.1 Allergy status to other antibiotic agents; Z88.8 Allergy status to other drugs, medicaments and biological substances; W10.8XXA Fall (on) (from) other stairs and steps, initial encounter; Y93.01 Activity, walking, marching and hiking; Y92.89 Other specified places as the place of occurrence of the external cause; Y99.8 Other external cause status
CPT/HCPCS: 70450; 71045; 72100; 72125; 81025; 99285-25

== ENCOUNTER 2021-03-07 09:19 | Emergency (ER) | payer OTHER ==
[~2021-03-07] VITALS: Ht 154.9 cm; Wt 80.1 kg
[2021-03-07 10:12] LABS: BILIRUBIN,URINE SMALL (NEG); CLARITY,URINE CLOUDY; COLOR,URINE AMBER; NITRITE,URINE NEGATIVE (NEG); PROTEIN,URINE 100 mg/dL (NEG-TRACE); UROBILINOGEN,URINE 0.2 mg/dL (0.2 mg/dL)
[2021-03-07] MEDS ORDERED: ONDANSETRON PF 4 MG/2 ML VIAL. IVP ONE (10:15)
[2021-03-07] MEDS ORDERED: MORPHINE SULFATE 4 MG/ML INJ. IVP ONE (10:15)
[2021-03-07] MEDS ORDERED: IV NORMAL SALINE 1000ML BAG 1,000 ML IV ONE (10:15)
[2021-03-07 10:26] LABS: BASO % 0 % (0-3); EOS % 0 % (0-3); HEMATOCRIT 40.9 % (36.0-47.0); HEMOGLOBIN 13.6 g/dL (12.0-15.5); LYMPH # 0.7 x10^3/uL (1.0-4.8); LYMPH % 8 % (24-48); MEAN CORPUSCULAR HEMOGLOBIN 31 pg (25-35); MEAN CORPUSCULAR HGB CONC 33 g/dL (31-37); MEAN CORPUSCULAR VOLUME 93 fL (79-100); MONO # 0.7 x10^3/uL (0.0-1.1); MONO % 7 % (0-9); NEUT # 7.9 x10^3/uL (1.8-7.7); NEUT % 85 % (31-73); PLATELET COUNT 229 x10^3/uL (140-400); WHITE BLOOD COUNT 9.3 x10^3/uL (4.0-11.0)
[2021-03-07 10:42] LABS: CREATININE 0.8 mg/dL (0.6-1.0); GFR 98.8; POTASSIUM 3.9 mmol/L (3.5-5.1)
[2021-03-07 10:50] LABS: BACTERIA,URINE FEW /HPF (0-FEW); RBC,URINE 0 /HPF (0-2); WBC,URINE 0 /HPF (0-4)
[2021-03-07 10:51] LABS: AMORPHOUS SEDIMENT,UR PRESENT /HPF
[2021-03-07 10:54] LABS: ALBUMIN/GLOBULIN RATIO 0.8 (1.0-1.7); TOTAL BILIRUBIN 0.6 mg/dL (0.2-1.0); TOTAL PROTEIN 9.2 g/dL (6.4-8.2)
[2021-03-07 11:03] LABS: INFLUENZA A PATIENT NEGATIVE (NEGATIVE); INFLUENZA B PATIENT NEGATIVE (NEGATIVE)
--- NOTE | 2021-03-07 11:15 | RAD ---
Exam Date: 03/07/2021 10:20 AM US ABDOMEN COMPLETE Indication: Reason: gall bladder study, upper abdomen pain / Spl. Instructions: / History: . TECHNIQUE: Multiple longitudinal and transverse sonographic images of the abdomen are submitted for interpretation. FINDINGS: The liver is normal in size and echogenicity. The portal vein is patent, with hepatopetal flow. N o focal intrahepatic abnormality is seen. The gallbladder is normal, without gallstones, gallbladder wall thickening or pericholecystic fluid. There is no biliary ductal dilatation, with the common bile duct measuring 2 mm. The spleen is normal in size and echogenicity. The visualized abdominal aorta, inferior vena cava an d pancreas are within normal limits. There is no upper abdominal ascites. The right kidney is justin l and measures 10.4 cm. Left kidney is suboptimally visualized due to overlying bowel gas IMPRESSION: Left kidney is suboptimally visualized due to overlying bowel gas. Otherwise normal abdominal ultras ound. Electronically signed by: Aguilar Abreu MD (03/07/2021 11:13 AM) [id number]
--- NOTE | 2021-03-07 11:31 | PHYS DOC ---
Past Medical History Past Medical History: Bronchitis, Migraines, Pneumonia, Other Additional Past Medical Histor: blood clots in lung Past Surgical History: , Tonsillectomy Smoking Status: Never Smoker Alcohol Use: Rarely Drug Use: None General Adult EDM: Chief Complaint: ABDOMINAL PAIN HPI: HPI: Patient is a 35 year old female who presents to the emergency department complaining of waking up this morning feeling nauseated, had 6 bouts of vomiting noticing clear vomitus, patient also complains each time she vomited she had loose brown watery diarrhea spells. Reports pain all over to her abdomen, reports a 10 out of 10 pain at this time. Patient denies eating fast food the night before, patient states other people ate dinner with her last night are not experiencing symptoms as she. Patient denies fever or chills, denies chest pains or chest discomfort, denies chest congestion or nasal congestion. Patient denies loss of taste or loss of smell patient reports she has received the COVID-19 virus vaccination series however has not received the flu vaccination for this season. Patient reports seeing a primary care at [facility], denies taking home medications, denies taking [id number] medications for her symptoms. Patient reports her last menstrual cycle 2 weeks ago with normal duration and flow. Patient denies other physical complaints or physical concerns. Review of Systems: Review of Systems: 14 body systems of review of systems have been reviewed. See HPI for pertinent positives and negative responses, otherwise all other systems are negative, nonpertinent or noncontributory. Constitutional: Negative except as outlined in HPI above. Skin: Negative except as outlined in HPI above. Eyes: Negative except as outlined in HPI above. HENT: Negative except as outlined in HPI above. Respiratory: Negative except as outlined in HPI above. Cardiovascular: Negative except as outlined in HPI above. GI: Negative except as outlined in HPI above. : Negative except as outlined in HPI above. Musculoskeletal: Negative except as outlined in HPI above. Integument: Negative except as outlined in HPI above. Neurologic: Negative except as outlined in HPI above. Endocrine: Negative except as outlined in HPI above. Lymphatic: Negative except as outlined in HPI above. Psychiatric: Negative except as outlined in HPI above. Heart Score: C/O Chest Pain: No Risk Factors: Risk Factors: DM, Current or recent (<one month) smoker, HTN, HLP, family history of CAD, obesity. Risk Scores: Score 0 - 3: 2.5% MACE over next 6 weeks - Discharge Home Score 4 - 6: 20.3% MACE over next 6 weeks - Admit for Clinical Observation Score 7 - 10: 72.7% MACE over next 6 weeks - Early Invasive Strategies Current Medications: Current Medications Medications (Trade) Dose Ordered Sig/Marge Start Time Stop Time Status Last Admin Dose Admin Morphine Sulfate (Morphine Sulfate) 4 mg 1X ONCE 03/07/21 10:15 03/07/21 10:20 DC 03/07/21 10:29 4 MG Ondansetron HCl (Zofran) 4 mg 1X ONCE 03/07/21 10:15 03/07/21 10:20 DC 03/07/21 10:28 4 MG Sodium Chloride 1,000 ml @ 1,000 mls/hr 1X ONCE 03/07/21 10:15 03/07/21 11:14 DC 03/07/21 10:28 1,000 MLS/HR Allergies: Allergies: Allergies Coded Allergies Type Severity Reaction Last Updated Verified doxycycline Allergy Intermediate rash 02/28/14 No sumatriptan Allergy Intermediate swelling 02/28/14 No Physical Exam: PE: Constitutional: Well developed, well nourished, no acute distress, non-toxic appearance. 35-year-old female in no apparent distress. HENT: Normocephalic, atraumatic. Eyes: Conjunctiva normal, no discharge. Neck: Normal range of motion, no stridor. Cardiovascular: No cyanosis appreciated, distal cap refill less than 2 seconds. Lungs & Thorax: Patient is in no respiratory distress, no audible adventitious lung sounds appreciated. Abdomen: Surgical scars lower abdomen, pain to palpation generalized all 4 quadrants, no specific McBurney's point tenderness, rebound tenderness, Soto sign, psoas sign, or straight leg test. No masses, no megaly however patient is obese, BMI 33.4, no skin discoloration appreciated, skin color appropriate for patient's ethnicity. Skin: Warm, dry, no erythema, no rash. Back: No tenderness, no deformities. Extremities: No tenderness, no cyanosis, no clubbing, ROM intact, no edema. Neurologic: Alert and oriented X 3, normal motor function, normal sensory function, no focal deficits noted. Psychologic: Affect normal, judgement normal, mood normal. Current Patient Data: Labs: Laboratory Tests Test 03/07/21 09:45 03/07/21 09:52 03/07/21 10:14 03/07/21 10:30 Urine Collection Type Void Urine Color Valeria Urine Clarity Cloudy Urine pH 5.0 Urine Specific [place] >=1.030 Urine Protein 100 mg/dL Urine Glucose (UA) Negative mg/dL Urine Ketones (Stick) Trace mg/dL Urine Blood Negative Urine Nitrite Negative Urine Bilirubin Small Urine Urobilinogen Dipstick 0.2 mg/dL Urine Leukocyte Esterase Negative Urine RBC 0 /HPF Urine WBC 0 /HPF Urine Squamous Epithelial Cells Mod /LPF Urine Amorphous Sediment Present /HPF Urine Bacteria Few /HPF Urine Mucus Slight /LPF Bedside Urine HCG, Qualitative Hcg negative White Blood Count 9.3 x10^3/uL Red Blood Count 4.40 x10^6/uL Hemoglobin 13.6 g/dL Hematocrit 40.9 % Mean Corpuscular Volume 93 fL Mean Corpuscular Hemoglobin 31 pg Mean Corpuscular Hemoglobin Concent 33 g/dL Red Cell Distribution Width 13.0 % Platelet Count 229 x10^3/uL Neutrophils (%) (Auto) 85 % Lymphocytes (%) (Auto) 8 % Monocytes (%) (Auto) 7 % Eosinophils (%) (Auto) 0 % Basophils (%) (Auto) 0 % Neutrophils # (Auto) 7.9 x10^3/uL Lymphocytes # (Auto) 0.7 x10^3/uL Monocytes # (Auto) 0.7 x10^3/uL Eosinophils # (Auto) 0.0 x10^3/uL Basophils # (Auto) 0.0 x10^3/uL Sodium Level 133 mmol/L Potassium Level 3.9 mmol/L Chloride Level 100 mmol/L Carbon Dioxide Level 21 mmol/L Anion Gap 12 Blood Urea Nitrogen 22 mg/dL Creatinine 0.8 mg/dL Estimated GFR (Cockcroft-Gault) 98.8 BUN/Creatinine Ratio 28 Glucose Level 100 mg/dL Calcium Level 9.0 mg/dL Total Bilirubin 0.6 mg/dL Aspartate Amino Transf (AST/SGOT) 14 U/L Alanine Aminotransferase (ALT/SGPT) 23 U/L Alkaline Phosphatase 91 U/L Total Protein 9.2 g/dL Albumin 4.0 g/dL Albumin/Globulin Ratio 0.8 Lipase 50 U/L Influenza Type A Antigen Negative Influenza Type B Antigen Negative SARS-CoV-2 Antigen (Rapid) Negative Current Medications Medications (Trade) Dose Ordered Sig/Marge Route PRN Reason Start Time Stop Time Status Last Admin Dose Admin Sodium Chloride 1,000 ml @ 1,000 mls/hr 1X ONCE IV 03/07/21 10:15 03/07/21 11:14 DC 03/07/21 10:28 Ondansetron HCl (Zofran) 4 mg 1X ONCE IVP 03/07/21 10:15 03/07/21 10:20 DC 03/07/21 10:28 Morphine Sulfate (Morphine Sulfate) 4 mg 1X ONCE IVP 03/07/21 10:15 03/07/21 10:20 DC 03/07/21 10:29 Iohexol (Omnipaque 300 Mg/ml) 75 ml 1X ONCE IV 03/07/21 11:45 03/07/21 11:49 DC 03/07/21 11:57 Info (CONTRAST GIVEN -- Rx MONITORING) 1 each PRN DAILY PRN MC SEE COMMENTS 03/07/21 12:00 03/07/21 13:40 DC Laboratory Tests Test 03/07/21 09:45 03/07/21 09:52 03/07/21 10:14 03/07/21 10:30 Urine Collection Type Void Urine Color Valeria Urine Clarity Cloudy Urine pH 5.0 (<5.0-8.0) Urine Specific [place] >=1.030 (1.000-1.030) Urine Protein 100 mg/dL (NEG-TRACE) Urine Glucose (UA) Negative mg/dL (NEG) Urine Ketones (Stick) Trace mg/dL (NEG) Urine Blood Negative (NEG) Urine Nitrite Negative (NEG) Urine Bilirubin Small (NEG) Urine Urobilinogen Dipstick 0.2 mg/dL (0.2 mg/dL) Urine Leukocyte Esterase Negative (NEG) Urine RBC 0 /HPF (0-2) Urine WBC 0 /HPF (0-4) Urine Squamous Epithelial Cells Mod /LPF Urine Amorphous Sediment Present /HPF Urine Bacteria Few /HPF (0-FEW) Urine Mucus Slight /LPF POC Urine HCG, Qualitative Hcg negative (Negative) White Blood Count 9.3 x10^3/uL (4.0-11.0) Red Blood Count 4.40 x10^6/uL (3.50-5.40) Hemoglobin 13.6 g/dL (12.0-15.5) Hematocrit 40.9 % (36.0-47.0) Mean Corpuscular Volume 93 fL (79-100) Mean Corpuscular Hemoglobin 31 pg (25-35) Mean Corpuscular Hemoglobin Concent 33 g/dL (31-37) Red Cell Distribution Width 13.0 % (11.5-14.5) Platelet Count 229 x10^3/uL (140-400) Neutrophils (%) (Auto) 85 % (31-73) H Lymphocytes (%) (Auto) 8 % (24-48) L Monocytes (%) (Auto) 7 % (0-9) Eosinophils (%) (Auto) 0 % (0-3) Basophils (%) (Auto) 0 % (0-3) Neutrophils # (Auto) 7.9 x10^3/uL (1.8-7.7) H Lymphocytes # (Auto) 0.7 x10^3/uL (1.0-4.8) L Monocytes # (Auto) 0.7 x10^3/uL (0.0-1.1) Eosinophils # (Auto) 0.0 x10^3/uL (0.0-0.7) Basophils # (Auto) 0.0 x10^3/uL (0.0-0.2) Sodium Level 133 mmol/L (136-145) L Potassium Level 3.9 mmol/L (3.5-5.1) Chloride Level 100 mmol/L (98-107) Carbon Dioxide Level 21 mmol/L (21-32) Anion Gap 12 (6-14) Blood Urea Nitrogen 22 mg/dL (7-20) H Creatinine 0.8 mg/dL (0.6-1.0) Estimated GFR (Cockcroft-Gault) 98.8 BUN/Creatinine Ratio 28 (6-20) H Glucose Level 100 mg/dL (70-99) H Calcium Level 9.0 mg/dL (8.5-10.1) Total Bilirubin 0.6 mg/dL (0.2-1.0) Aspartate Amino Transferase (AST) 14 U/L (15-37) L Alanine Aminotransferase (ALT) 23 U/L (14-59) Alkaline Phosphatase 91 U/L (46-116) Total Protein 9.2 g/dL (6.4-8.2) H Albumin 4.0 g/dL (3.4-5.0) Albumin/Globulin Ratio 0.8 (1.0-1.7) L Lipase 50 U/L (73-393) L Influenza Type A Antigen Negative (NEGATIVE) Influenza Type B Antigen Negative (NEGATIVE) SARS-CoV-2 Antigen (Rapid) Negative (NEGATIVE) Laboratory Tests 03/07/21 10:14 Laboratory Tests 03/07/21 10:14 Vital Signs: Vital Signs Date Time Temp Pulse Resp B/P (MAP) Pulse Ox O2 Delivery O2 Flow Rate FiO2 03/07/21 10:29 20 99 Room Air 03/07/21 09:43 98.2 101 123/90 (101) 98.2 EKG: EKG: [] Radiology/Procedures: Radiology/Procedures: STATUS: REG ER ORD. PHYSICIAN: FRANKIE MCDONALD APRN REASON: gall bladder study, upper abdomen pain PROCEDURE: ABDOMEN COMPLETE Exam Date: 03/07/2021 10:20 AM US ABDOMEN COMPLETE Indication: Reason: gall bladder study, upper abdomen pain / Spl. Instructions: / History: . TECHNIQUE: Multiple longitudinal and transverse sonographic images of the abdomen are submitted for interpretation. FINDINGS: The liver is normal in size and echogenicity. The portal vein is patent, with hepatopetal flow. No focal intrahepatic abnormality is seen. The gallbladder is normal, without gallstones, gallbladder wall thickening or pericholecystic fluid. There is no biliary ductal dilatation, with the common bile duct measuring 2 mm. The spleen is normal in size and echogenicity. The visualized abdominal aorta, inferior vena cava and pancreas are within normal limits. There is no upper abdominal ascites. The right kidney is normal and measures 10.4 cm. Left kidney is suboptimally visualized due to overlying bowel gas IMPRESSION: Left kidney is suboptimally visualized due to overlying bowel gas. Otherwise normal abdominal ultrasound. Electronically signed by: Aguilar Abreu MD (03/07/2021 11:13 AM) [id number] Course & Med Decision Making: Course & Med Decision Making Pertinent Labs and Imaging studies reviewed. (See chart for details) 35-year-old female, vital signs reviewed, presents emergency department surrounding abdominal pain with nausea, vomiting, diarrhea. Physical examination concerning for gastritis versus gallbladder disease versus other acute abdominal process. Will order CBC, CMP, urinalysis assay with test, lipase, abdominal ultrasound gallbladder study. The patient's urine is not infected, she is not . Urine test, ultrasound nonconcerning for acute gallbladder disease, will order CT abdomen pelvis with IV contrast. Patient's labs are unremarkable, CT abdomen pelvis suggestive of diarrhea. No acute process appreciated per house radiologist interpretation. Discussed findings with patient, patient was given 1 L normal saline, 4 mg Zofran, 4 mg of morphine for symptoms, patient reports she is feeling better however does have slight abdominal pain that she rates at a 2 to a 3 out of 10. Discussed with patient will prescribe Bentyl for ongoing abdominal discomfort, Zofran ODT as needed for any returning nausea, discussed follow-up with primary care soon for ongoing symptoms, watch for signs of dehydration, return to ER precautions and concerns were reviewed. Patient gave verbal understanding of and is amenable to ED discharge planning Discussed with the patient all findings and diagnostic testing as well as the need to follow-up with their primary care provider for further evaluation and treatment or return to the ED if any new or worsening symptoms. Strict return precautions were also discussed at length, the patient voiced understanding and agreement with the discharge planning. The patient was nontoxic in appearance, in no apparent distress, and hemodynamically stable at the time of disposition. Young Disclaimer: Young Disclaimer: This electronic medical record was generated, in whole or in part, using a voice recognition dictation system. Departure Departure Impression: Primary Impression: Nausea vomiting and diarrhea Disposition: 01 HOME / SELF CARE / HOMELESS Condition: GOOD Referrals: NON,STAFF (PCP) Patient Instructions: Diarrhea, Nausea and Vomiting Additional Instructions: You were seen today in the emergency department for nausea, vomiting, diarrhea. Your lab work did not show any concerning findings of infection that would warrant admission to the hospital. The sonogram of your abdomen did not show any concerning findings concerning your gallbladder. The CT scan of your abdomen did not show any concerning findings that would warrant admission or examination by specialist. It did show that you had some loose stool that is consistent with your complaint of diarrhea. Your nausea was well controlled with the Zofran medication given today in the emergency department. You were also given a liter of normal saline. As we discussed I am prescribing you Bentyl which is an antispasmodic for your bowels that will help with your symptoms, please take as directed, I am also prescribing you oral Zofran to use in the event your nausea returns. As we discussed, please use a brat diet, this is an acronym for bananas, rice, applesauce, toast until your symptoms have resolved. Please follow-up with your primary care doctor for ongoing symptoms, return to the emergency department for worsening symptoms or other concerns. Thank you for visiting our Emergency Department. It was a pleasure taking care of you today in the emergency department and we appreciate you trusting us with your care. If any additional problems come up don't hesitate to return to visit us. Please follow up with your primary care provider so they can plan additional care if needed and know about the problem that you had. If symptoms worsen come back to the Emergency Department. Any concerning symptoms that start such as chest pain, shortness of air, weakness or numbness on one side of the body, running high fevers or any other concerning symptoms return to the ER. EMERGENCY DEPARTMENT GENERAL DISCHARGE INSTRUCTIONS Thank you for coming to [facility] Emergency Department (ED) today and trusting us with you care. We trust that you had a positive experience in our Emergency Department. If you wish to speak to the department management, you may call the Director at [phone]. YOUR FOLLOW UP INSTRUCTIONS ARE FOLLOWS: 1. Do you have a private Doctor? If you do not have a private doctor, please ask for a resource list of physicians or clinics that may be able to assist you with follow up care. 2. The Emergency Physicain has interpreted your x-rays. The X-Ray specialist will also review them. If there is a change in the findings, you will be notified in 48 hours when at all possible. 3. A lab test or culture has been done, your results will be reviewed and you will be notified if you need a change in treatment. ADDITIONAL INSTRUCTIONS AND INFORMATION: 1. Your care today has been supervised by a physician who is specially trained in emergency care. Many problems require more than one evaluation for a complete diagnosis and treatment. We recommend that you schedule your follow up appointment as recommended to ensure complete treatment of you illness or injury. If you are unable to obtain follow up care and continue to have a problem, or if your condition worsens, we recommend that you return to the ED. 2. We are not able to safely determine your condition over the phone nor are we able to give sound medical advice over the phone. For these safety reasons, if you call for medical advice we will ask you to come to the ED for further evaluation. 3. If you have any questions regarding these discharge instructions please call the ED at [phone]. SAFETY INFORMATION: In the interest of safety, wellness, and injury prevention; we encourage you to wear your sealbelt, if you smoke; quite smoking, and we encourage family to use a protective helmet for bicycling and other sporting events that present an increased risk for head injury. IF YOUR SYMPTOMS WORSEN OR NEW SYMPTOMS DEVELOP, OR YOU HAVE CONCERNS ABOUT YOUR CONDITION; OR IF YOUR CONDITION WORSENS WHILE YOU ARE WAITING FOR YOUR FOLLOW UP APPOINTMENT; EITHER CONTACT YOUR PRIMARY CARE DOCTOR, THE PHYSICIAN WHOSE NAME AND NUMBER YOU WERE GIVEN, OR RETURN TO THE ED IMMEDIATELY. Scripts Ondansetron (ONDANSETRON ODT) 4 Mg Tab.rapdis 1 TAB PO PRN Q6-8HRS, #16 TAB 0 Refills Prov: FRANKIE MCDONALD APRN 03/07/21 Dicyclomine Hcl (DICYCLOMINE HCL) 10 Mg Capsule 1 CAP PO PRN Q6HRS for abdomen pains, #16 CAP 0 Refills Prov: FRANKIE MCDONALD APRN 03/07/21 FRANKIE MCDONALD APRN Mar 07, 2021 11:31
[2021-03-07] MEDS ORDERED: IOHEXOL 300 MG/ML 100ML VIAL. IV ONE (11:45)
[2021-03-07] MEDS ORDERED: CONTRAST GIVEN. MC PRN (12:00)
--- NOTE | 2021-03-07 12:11 | RAD ---
INDICATION: Reason: Abdominal pain / Spl. Instructions: omni 300 75ml / History: COMPARISON: Ultrasound from same day TECHNIQUE: Axial CT images were obtained through the abdomen and pelvis with intravenous contrast. One or more of the following individualized dose reduction techniques were utilized for this examinat ion: 1. Automated exposure control; 2. Adjustment of the mA and/or kV according to patient size; 3 . Use of iterative reconstruction technique. FINDINGS: Vascular: No abdominal aortic aneurysm. Hepatobiliary: Liver is borderline low density. Mild fatty infiltration not excluded. Prominent size. Gallbladder somewhat distended at time of exam. Pancreas: No peripancreatic edema. Spleen: Spleen unremarkable. Renal/Bladder: No hydronephrosis. Gastrointestinal: No periappendiceal inflammatory changes. There is some prominent fluid within the l arge and small bowel which could be from liquid stool. No high-grade transition point to suggest obst ruction. Degenerative changes of the spine. IMPRESSION: * No evidence of bowel obstruction or appendicitis. There is some prominent low-density content wit hin the large and small bowel which could be from liquid stool. Electronically signed by: Vamsi Motley MD (03/07/2021 12:09 PM) [id number]
[2021-03-07] MEDS ORDERED: DICY10CA3 PO (13:20)
[2021-03-07] MEDS ORDERED: ONDA4TAB12 PO (13:20)
[2021-03-07 13:23] VITALS: BP 114/60
== END 2021-03-07 13:39 | disposition home or self-care (01) ==
LOC: ER 09:19
DX: R11.2 Nausea with vomiting, unspecified (principal); R19.7 Diarrhea, unspecified; Z20.822 Contact with and (suspected) exposure to COVID-19; G43.909 Migraine, unspecified, not intractable, without status migrainosus; Z88.1 Allergy status to other antibiotic agents; Z88.8 Allergy status to other drugs, medicaments and biological substances
CPT/HCPCS: 36415; 74177; 76700; 80053; 81001; 81025; 83690; 85025; 87804; 96361; 96374; 96375; 99285; J2270; J2405; J7030; Q9967; U0003; U0005; 87426

== ENCOUNTER 2021-06-01 19:29 | Emergency (ER) | payer OTHER ==
[~2021-06-01] VITALS: Ht 154.9 cm; Wt 81.9 kg
[~2021-06-01 19:29] MED LIST changes: +DICY10CA3 PO; +ONDA4TAB12 PO
[2021-06-01 19:35] VITALS: BP 121/64
[2021-06-01] MEDS ORDERED: PROCHLORPERAZINE 10 MG/2 ML VIAL. IM ONE (20:30)
[2021-06-01] MEDS ORDERED: KETOROLAC 60 MG/2 ML VIAL. IM ONE (20:30)
[2021-06-01] MEDS ORDERED: MAGNESIUM OXIDE 400 MG TABLET PO ONE (20:30)
[2021-06-01] MEDS ORDERED: ACETAMINOPHEN 500 MG TABLET PO ONE (20:30)
[2021-06-01] MEDS ORDERED: CEFDINIR 300 MG CAPSULE PO STA (21:36)
[2021-06-01] MEDS ORDERED: DEXAMETHASONE SOD PHOS 20 MG/5 ML VIAL. PO ONE (21:45)
[2021-06-01] MEDS ORDERED: CEFD300C PO (22:20)
--- NOTE | 2021-06-01 22:20 | PHYS DOC ---
Past Medical History Past Medical History: Bronchitis, Migraines, Pneumonia, Other Additional Past Medical Histor: blood clots in lung Past Surgical History: , Tonsillectomy Smoking Status: Never Smoker Alcohol Use: Rarely Drug Use: None Adult General Chief Complaint Chief Complaint: HEADACHE HPI HPI The patient is a 35-year-old female with a history of chronic migraine headaches on preventative therapy who presents for evaluation of 2 concerns. First, she notes a gradual onset right-sided headache which she states feels exactly like one of her typical migraines. She has had this intermittently since last Saturday and it has not resolved with her typical home therapy. Associated nausea and light sensitivity. No associated fevers, vomiting, upper respiratory congestion/rhinorrhea, cough, focal or lateralizing weakness, numbness or tingling, neck stiffness/pain/meningismus, vision changes, recent injury or trauma to her head, shortness of breath or chest pain. Second, patient notes some mild right-sided ear discomfort with onset over the past 2 to 3 days. Discomfort is "inside" and is not worse with manipulation of the tragus or palpation of the mastoid process. No associated change in hearing. No recent instrumentation of her ear. Patient is alert, pleasantly appropriately interactive and in no acute distress with appropriate vital signs upon initial evaluation here in the emergency department. She is ambulatory with a narrow, steady, non-ataxic gait to her ED bed. Review of Systems Review of Systems A 12 point review of systems was completed and was negative except where noted in HPI above. Current Medications Current Medications Current Medications Medications (Trade) Dose Ordered Sig/Marge Start Time Stop Time Status Last Admin Dose Admin Acetaminophen (Tylenol) 1,000 mg 1X ONCE 06/01/21 20:30 06/01/21 20:31 DC 06/01/21 20:44 1,000 MG Cefdinir (Omnicef) 300 mg ONCE STAT 06/01/21 21:36 06/01/21 21:38 DC 06/01/21 21:56 300 MG Dexamethasone Sodium Phosphate (Decadron) 10 mg 1X ONCE 06/01/21 21:45 06/01/21 21:46 DC 06/01/21 21:56 10 MG Ketorolac Tromethamine (Toradol Im) 60 mg 1X ONCE 06/01/21 20:30 06/01/21 20:31 DC 4/14/22 20:41 60 MG Magnesium Oxide (Magnesium Oxide) 400 mg 1X ONCE 06/01/21 20:30 06/01/21 20:31 DC 06/01/21 20:44 400 MG Prochlorperazine Edisylate (Compazine) 10 mg 1X ONCE 06/01/21 20:30 06/01/21 20:31 DC 06/01/21 20:40 10 MG Allergies Allergies Allergies Coded Allergies Type Severity Reaction Last Updated Verified doxycycline Allergy Intermediate rash 02/28/14 No sumatriptan Allergy Intermediate swelling 02/28/14 No Physical Exam Physical Exam 35-year-old female appearing nontoxic and in no acute distress. Head is normocephalic and atraumatic. Neck is supple and nontender. No neck stiffness/rigidity/meningismus seen and patient ranges neck fully in all dimensions without discomfort or distress. Kernig's and Brudzinski's sign negative. Oropharynx is moist. Right tympanic membrane mostly blocked with cerumen. EAC and mastoid process normal on the right. TM, EAC and mastoid process normal on the left. Lungs are clear to auscultation at all stations. There is normal S1 and S2 without rubs or gallops and capillary refill is appropriate, less than 2 seconds globally. Abdomen is soft, nontender and nondistended. Skin is warm and dry without cyanosis, clubbing or edema. Psych iatrically, the patient demonstrates appropriate mood and affect and is alert. Neurologically, cranial nerves II through XII are intact and the neuro no lateralizing deficits seen. Speech is normal. Language is normal. Coordination is normal. There is no dysmetria [id number] or [id number] bilaterally. Strength is 5/5 at all joints of bilateral upper and lower extremities. Sensation is intact to light touch in bilateral upper and lower extremities. Patient ambulates with a narrow, steady, non-ataxic gait here in the emergency department and is alert and oriented x4. Current Patient Data Vital Signs Vital Signs Date Time Temp Pulse Resp B/P (MAP) Pulse Ox O2 Delivery O2 Flow Rate FiO2 06/01/21 19:35 98.7 98 20 121/64 (83) 99 Room Air 98.7 EKG EKG [] Radiology/Procedures Radiology/Procedures [] Course & Med Decision Making Course & Med Decision Making 35-year-old female here with a migraine headache identical to her typical migraine headaches without red flags for headache today by history or exam. Vital signs, clinical examination and neurologic examination are all reassuring. Secondarily also noting some right ear discomfort. Right ear has been irrigated and after irrigation some erythema is noted to the posterior aspect of the tympanic membrane. Likely a mild otitis media. Will address with cefdinir. Headache is much, much better upon serial reassessments after headache medication. Repeat full formal neurologic examination is nonfocal. Given marked improvement in presenting symptoms, will discharge home with cefdinir to continue home medications for headache and to follow-up closely with primary care. Patient understands that if she feels worse instead of better or develops other new symptoms of concern that she would need to return to the emergency department immediately for reevaluation. All questions were answered. Dragon Disclaimer Dragon Disclaimer This electronic medical record was generated, in whole or in part, using a voice recognition dictation system. Departure Departure Impression: Primary Impression: Migraine headache Additional Impressions: Impacted cerumen of right ear Right otitis media Disposition: 01 HOME / SELF CARE / HOMELESS Condition: IMPROVED Patient Instructions: Cerumen Impaction, Migraine Headache, Otitis Media, Adult Additional Instructions: Follow-up very closely with your primary care doctor in the office in the next 2 to 4 days for a reevaluation of your symptoms and to discussion of next best steps in care. Drink plenty of fluids to stay hydrated and get plenty of rest. Take the cefdinir antibiotic twice a day for the next 10 days to treat your ear infection. Use your home medication for headache prevention as already prescribed. Return to the emergency department right away for worsening symptoms of any kind or with any other new symptoms of concern. Scripts Cefdinir (CEFDINIR) 300 Mg Capsule 1 CAP PO BID for 10 Days, #20 CAP Prov: BEV HORN MD 06/01/21 Problem Qualifiers BEV HORN MD Jun 01, 2021 22:20
== END 2021-06-01 22:10 | disposition home or self-care (01) ==
LOC: ER 19:29
DX: G43.909 Migraine, unspecified, not intractable, without status migrainosus (principal); H61.21 Impacted cerumen, right ear; H66.91 Otitis media, unspecified, right ear
CPT/HCPCS: 96372; 99284; J0780; J1100; J1885

== ENCOUNTER → 2021-07-12 | Emergency (ER) | payer OTHER ==
[~2021-07-12] VITALS: Ht 154.9 cm; Wt 83.6 kg
[~2021-07-12] MED LIST changes: +ACETAMINOPHEN 325 MG TABLET. PO ONE; +CEFD300C PO; +IBUPROFEN 400 MG TABLET. PO ONE; +ONDANSETRON ODT 4 MG TAB.RAPDIS. PO ONE; +PREN1TAB60 PO
[2021-07-12 23:25] VITALS: BP 129/63
--- NOTE | 2021-07-12 23:38 | PHYS DOC ---
Past Medical History Past Medical History: Bronchitis, Migraines, Pneumonia, Other Additional Past Medical Histor: blood clots in lung Past Surgical History: Smoking Status: Never Smoker Alcohol Use: Rarely Drug Use: None General Adult EDM: Chief Complaint: GENERALIZED BODY ACHES HPI: HPI: 35 yo F, pmhx migraines, , presents with 1 day n/v and chills, in recent setting of nasal congestion & sore throat and son with viral URI sx. Denies fever, cough, chest pain or SOB. No focal abdominal pain. No urinary complaints or diarrhea. Review of Systems: Review of Systems: Constitutional: Denies fever, + chills/malaise. [] Eyes: Denies change in visual acuity. [] HENT: + nasal congestion, sore throat. [] Respiratory: Denies cough or shortness of breath. [] Cardiovascular: Denies chest pain or edema. [] GI: Denies abdominal pain, +nausea/vomiting, bloody stools or diarrhea. [] : Denies dysuria. [] Musculoskeletal: Denies back pain or joint pain. [] Integument: Denies rash. [] Neurologic: Denies headache, focal weakness or sensory changes. [] Endocrine: Denies polyuria or polydipsia. [] Lymphatic: Denies swollen glands. [] Psychiatric: Denies depression or anxiety. [] Heart Score: C/O Chest Pain: No Risk Factors: Risk Factors: DM, Current or recent (<one month) smoker, HTN, HLP, family history of CAD, obesity. Risk Scores: Score 0 - 3: 2.5% MACE over next 6 weeks - Discharge Home Score 4 - 6: 20.3% MACE over next 6 weeks - Admit for Clinical Observation Score 7 - 10: 72.7% MACE over next 6 weeks - Early Invasive Strategies Allergies: Allergies: Allergies Coded Allergies Type Severity Reaction Last Updated Verified doxycycline Allergy Intermediate rash 07/12/21 No sumatriptan Allergy Intermediate swelling 07/12/21 No Physical Exam: PE: Constitutional: Well developed, well nourished, no acute distress, non-toxic appearance. [] HENT: Normocephalic, atraumatic, bilateral external ears normal, oropharynx moist and nonerythematous, +nasal congestion, no oral exudates, nose normal. [] Eyes: PERRLA, EOMI, conjunctiva normal, no discharge. [] Neck: Normal range of motion, no tenderness, supple, no stridor. [] Cardiovascular:Heart rate regular rhythm, no murmur [] Lungs & Thorax: Bilateral breath sounds clear to auscultation [] Abdomen: Bowel sounds normal, soft, no tenderness, no masses, no pulsatile masses. [] Skin: Warm, dry, no erythema, no rash. [] Back: No tenderness, no CVA tenderness. [] Extremities: No tenderness, no cyanosis, no clubbing, ROM intact, no edema. [] Neurologic: Alert and oriented X 3, normal motor function, normal sensory function, no focal deficits noted. [] Psychologic: Affect normal, judgement normal, mood normal. [] Current Patient Data: Vital Signs: Vital Signs Date Time Temp Pulse Resp B/P (MAP) Pulse Ox O2 Delivery O2 Flow Rate FiO2 07/12/21 23:25 98.4 84 16 129/63 (85) 100 Room Air 98.4 EKG: EKG: [] Radiology/Procedures: Radiology/Procedures: [] Course & Med Decision Making: Course & Med Decision Making Pertinent Labs and Imaging studies reviewed. (See chart for details) Additional Social History: PMD from non-affiliated facility. Patient Lives at home. Family History: Non-pertinent to today's complaint. Nursing Notes Reviewed Previous Medical Records requested via [facility] Web: Reviewed by me. EMERGENCY DEPARTMENT COURSE/ MEDICAL DECISION MAKING: I examined the patient, evaluated and addressed patient's chief complaint. The patient was treated with Tylenol, ibuprofen, Zofran Flu/COVID neg. Found to have UCG + . By LMP 06/05/21, patient is approximately 5 week and 3 days. Patient does note that her period is late. On re-assessment, patient feels much better. States she has OBGYN f/u already scheduled for next Saturday for her fibroids. The patient understands that todays Emergency Department evaluation does not represent a comprehensive medical workup, and it is impossible to diagnose all possible illnesses from a single Emergency Department visit. The patient verbalized understanding that it is absolutely necessary to have follow-up with regular primary care physician within 1-2 days for more detailed workup and continued exam. I explained the findings and plan to the patient, who expressed verbal understanding and agreed with plan for discharge and follow up. The patient was given after care instructions and welcomed to return to the ED for re-evaluation in 8-12 hours, especially for any new or worsening symptoms. Patient's blood pressure was elevated (>120/80) but appears stable without evidence of end organ damage, malignant hypertension, hypertensive emergency or urgency. The patient was counseled about the risks of hypertension and urged to pursue outpatient monitoring and therapy within a week with their primary care physician. The patient was stable at the time of discharge. DIAGNOSTIC IMPRESSION: 1. positive UCG 2. first trimester 3. nausea DISPOSITION: Disposition: Discharge Home. Condition: Improved Follow-Up: PMD, OBGYN Prescriptions: None Return to the Emergency Department for new or worsening symptoms. Dragon Disclaimer: Dragon Disclaimer: This electronic medical record was generated, in whole or in part, using a voice recognition dictation system. Departure Departure Impression: Primary Impression: Nausea Additional Impressions: First trimester Positive urine test Disposition: HOME / SELF CARE / HOMELESS Condition: STABLE Referrals: NO PCP (PCP) Scripts Vit37/Iron/Folic Acid (PRENATA CHEWABLE TABLET) 1 Each Tab.chew 1 TAB PO DAILY for 30 Days, #30 TAB 3 Refills Prov: SOPHY HUNTER MD 07/13/21 SOPHY HUNTER MD July 12, 2021 23:38
[2021-07-13 00:11] LABS: INFLUENZA A PATIENT NEGATIVE (NEGATIVE); INFLUENZA B PATIENT NEGATIVE (NEGATIVE)
[2021-07-13 00:15] LABS: U PREG PATIENT POSITIVE (NEG)
== END | disposition home or self-care (01) ==
LOC: ER 23:04
DX: O26.891 Other specified pregnancy related conditions, first trimester (principal); Z20.822 Contact with and (suspected) exposure to COVID-19; Z88.1 Allergy status to other antibiotic agents; G43.909 Migraine, unspecified, not intractable, without status migrainosus; Z88.8 Allergy status to other drugs, medicaments and biological substances; Z3A.00 Weeks of gestation of pregnancy not specified
CPT/HCPCS: 81025; 87428; 99284